=== PATIENT | male | born 1960 | race Caucasian/White ===

== ENCOUNTER 2024-06-30 10:10 | Inpatient (IN) | payer MEDICARE, OTHER ==
[~2024-06-30] VITALS: Ht 175.3 cm; Wt 59.2 kg
[2024-06-30] MEDS: IV NS 0.9% 500 ML BAG IV ONE (10:33)
[2024-06-30 11:21] LABS: BASOPHILS # (AUTO) 0.1 K/uL (0.0-0.2); BASOPHILS % (AUTO) 0.8 % (0.0-2.0); EOSINOPHILS # (AUTO) 0.2 K/uL (0.0-0.7); EOSINOPHILS % (AUTO) 2.3 % (0.0-6.0); HEMATOCRIT 37 % (39-51); HEMOGLOBIN 11.7 g/dL (13.5-17.5); LYMPHOCYTES # (AUTO) 1.9 K/uL (0.8-4.8); LYMPHOCYTES % (AUTO) 19.8 % (20.0-44.0); MEAN CORPUSCULAR HEMOGLOBIN 29 PG (26.0-33.0); MEAN CORPUSCULAR HGB CONC 32 g/dl (31.0-36.0); MEAN CORPUSCULAR VOLUME 91 fL (80-96); MONOCYTES # (AUTO) 0.7 K/uL (0.1-1.30); MONOCYTES % (AUTO) 7.4 % (2.0-12.0); NEUTROPHILS # (AUTO) 6.8 K/uL (1.8-8.9); NEUTROPHILS % (AUTO) 69.7 % (43.0-81.0); PLATELET COUNT (AUTO) 217 K/uL (150-450); RED BLOOD CELL COUNT(AUTO) 4.07 MIL/uL (4.5-6.0); RED CELL DISTRIBUTION WIDTH 17.3 % (11.5-15.0); WHITE BLOOD COUNT (AUTO) 9.8 K/uL (4.3-11.0)
[2024-06-30 11:31] LABS: ALANINE AMINOTRANSFERASE 21 U/L (12-78); ALBUMIN 2.7 g/dL (3.4-5.0); ALKALINE PHOSPHATASE 195 U/L (46-116); ASPARTATE AMINOTRANSFERASE 20 U/L (15-37); BILIRUBIN,DIRECT 0.1 mg/dL (0.0-0.2); BILIRUBIN,TOTAL 0.4 mg/dL (0.2-1.0); CALCIUM, SERUM 9.6 mg/dL (8.5-10.1); CARBON DIOXIDE 28 mmol/L (21-32); CHLORIDE 106 mmol/L (98-107); CREATININE 1.5 mg/dL (0.6-1.3); GLUCOSE 92 mg/dL (74-106); POTASSIUM 5.2 mmol/L (3.5-5.1); SODIUM SERUM 141 mmol/L (136-145); TOTAL PROTEIN, SERUM 8.7 g/dL (6.4-8.2); UREA NITROGEN, BLOOD 44 mg/dL (7-18)
[2024-06-30 11:33] LABS: LACTIC ACID 1.7 mmol/L (0.4-2.0)
[2024-06-30 11:36] LABS: LYMPHOCYTES % (MANUAL) 21 % (16-48); MONOCYTES % (MANUAL) 6 % (0-11.0); NEUTROPHILS % (MANUAL) 73 (42-76); PLATELET ESTIMATE ADEQUATE
[2024-06-30] MEDS ORDERED: CARV3.122 PO (12:30)
[2024-06-30] MEDS ORDERED: GABA300C PO (12:30)
[2024-06-30] MEDS ORDERED: AMIO200T5 PO (12:30)
[2024-06-30] MEDS ORDERED: LACT10SO3 PO (12:30)
[2024-06-30] MEDS ORDERED: SEVE800T28 PO (12:30)
[2024-06-30] MEDS ORDERED: ACET325T53 PO (12:30)
[2024-06-30] MEDS ORDERED: ISOS10TA2 PO (12:30)
[2024-06-30] MEDS ORDERED: BISA10SU11 RC (12:30)
[2024-06-30] MEDS ORDERED: CLON0.2T PO (12:30)
[2024-06-30] MEDS ORDERED: TRAM50TA PO (12:30)
[2024-06-30] MEDS ORDERED: CLOP75TA15 PO (12:30)
[2024-06-30] MEDS ORDERED: MELA3TAB41 PO (12:30)
[2024-06-30] MEDS ORDERED: SENN8.6T19 PO (12:30)
[2024-06-30] MEDS ORDERED: DOCU100C36 PO (12:30)
[2024-06-30] MEDS ORDERED: HYDR-3973 PO (12:30)
[2024-06-30] MEDS ORDERED: TAMS-12 PO (12:30)
[2024-06-30] MEDS ORDERED: LEVO100T9 PO (12:30)
[2024-06-30] MEDS ORDERED: MAGN400O6 PO (12:30)
[2024-06-30] MEDS ORDERED: ATOR40TA PO (12:30)
[2024-06-30] MEDS ORDERED: FAMO20TA8 PO (12:30)
[2024-06-30] MEDS ORDERED: FOLI0.8T2 PO (12:30)
[2024-06-30] MEDS ORDERED: ASPI-1420 PO (12:30)
[2024-06-30] MEDS ORDERED: INSU100I14 SQ (12:30)
[2024-06-30 12:48] LABS: INR 1.07 (0.91-1.10); PARTIAL THROMBOPLASTIN TIME 27.1 SEC (24.3-34.3); PROTHROMBIN TIME 11.3 SECS (9.2-11.1)
[2024-06-30] MEDS: ISOSORBIDE DINITRATE (10MG) 10 MG TABLET PO SCH (16:21)
[2024-06-30] MEDS: CARVEDILOL 3.125 MG TABLET PO SCH (16:21)
[2024-06-30] MEDS: GABAPENTIN 300 MG CAPSULE PO SCH (16:21)
[2024-06-30] MEDS: LACTULOSE 10 G/15 ML UDC (PYXIS) PO SCH (16:21)
[2024-06-30] MEDS: IV 1/2NS 1000 ML 1,000 ML IV PRN (16:22)
[2024-06-30] MEDS ORDERED: HYDROCODONE/APAP 5/325MG TABLET PO PRN (16:30)
[2024-06-30] MEDS ORDERED: BISACODYL SUPP (10 MG) 10 MG/SUPP.RECT SUPP.RECT RC PRN (16:30)
[2024-06-30] MEDS ORDERED: Z GUARD REMEDY 4 OZ OINT TP PRN (16:30)
[2024-06-30] MEDS ORDERED: MAGNESIUM HYDROXIDE 30 ML UDC PO PRN (16:30)
[2024-06-30] MEDS ORDERED: ACETAMINOPHEN 325 MG TABLET PO PRN (16:30)
[2024-06-30] MEDS ORDERED: ONDANSETRON HCL/PF 4 MG/2 ML VIAL IVP PRN (16:30)
[2024-06-30] MEDS ORDERED: MAG HYDROX/AL HYDROX/SIMETH 30 ML UDC PO PRN (16:30)
[2024-06-30] MEDS: SEVELAMER CARBONATE 800 MG TABLET PO SCH (18:00)
[2024-06-30 18:48] LABS: THYROID STIMULATING HORMONE 169.07 uIU/mL (0.358-3.74)
[2024-06-30 20:00] VITALS: BP 177/90; TEMP 98.4; O2SAT 95
[2024-06-30] MEDS: hydrALAZINE HCL IV 20 MG VIAL IV ONE (20:26)
[2024-06-30] MEDS: OLANZAPINE 10 MG VIAL IM ONE (20:55)
[2024-06-30 21:00] VITALS: BP 154/102; TEMP 98.4; O2SAT 95
[2024-06-30] MEDS: ATORVASTATIN 40 MG TABLET PO SCH (21:08)
[2024-06-30] MEDS: SENNOSIDES 8.6 MG TABLET PO SCH (21:08)
[2024-06-30] MEDS: TAMSULOSIN 0.4 MG CAP.SR.24H PO SCH (21:08)
[2024-06-30 21:15] VITALS: BP 131/99; O2SAT 96
[2024-06-30 22:00] VITALS: BP 152/91; O2SAT 98
[2024-07-01] VITALS: BP 151/89; TEMP 98.1; O2SAT 97
[2024-07-01 04:00] VITALS: BP 159/93; TEMP 98.2; O2SAT 97
[2024-07-01 06:20] LABS: BASOPHILS # (AUTO) 0.1 K/uL (0.0-0.2); BASOPHILS % (AUTO) 0.7 % (0.0-2.0); EOSINOPHILS # (AUTO) 0.2 K/uL (0.0-0.7); EOSINOPHILS % (AUTO) 2.9 % (0.0-6.0); HEMATOCRIT 35 % (39-51); HEMOGLOBIN 11.3 g/dL (13.5-17.5); LYMPHOCYTES # (AUTO) 1.4 K/uL (0.8-4.8); LYMPHOCYTES % (AUTO) 18.4 % (20.0-44.0); MEAN CORPUSCULAR HEMOGLOBIN 29 PG (26.0-33.0); MEAN CORPUSCULAR HGB CONC 32 g/dl (31.0-36.0); MEAN CORPUSCULAR VOLUME 90 fL (80-96); MONOCYTES # (AUTO) 0.8 K/uL (0.1-1.30); MONOCYTES % (AUTO) 11.3 % (2.0-12.0); NEUTROPHILS % (AUTO) 66.7 % (43.0-81.0); PLATELET COUNT (AUTO) 170 K/uL (150-450); RED CELL DISTRIBUTION WIDTH 16.6 % (11.5-15.0); WHITE BLOOD COUNT (AUTO) 7.5 K/uL (4.3-11.0)
[2024-07-01 06:22] LABS: APPEARANCE,URINE SLIGHTLY CLOUDY (CLEAR); BILIRUBIN,URINE NEGATIVE (NEGATIVE); BLOOD, URINE 3+ Ery/uL (NEGATIVE); COLOR,URINE YELLOW (YELLOW); KETONES,URINE TRACE mg/dL (NEGATIVE); LEUKOCYTE ESTERASE ,URINE NEGATIVE (NEGATIVE); NITRITE, URINE POSITIVE (NEGATIVE); PROTEIN,URINE 2+ mg/dl (NEGATIVE); UGLUCOSE NEGATIVE (NEGATIVE); UROBILINOGEN,URINE 0.2 EU/dL (0.2)
[2024-07-01 06:36] LABS: CALCIUM, SERUM 9.3 mg/dL (8.5-10.1); CREATININE 1.2 mg/dL (0.6-1.3); MAGNESIUM 1.8 mg/dL (1.8-2.4); PHOSPHORUS 2.9 mg/dL (2.5-4.9); POTASSIUM 3.9 mmol/L (3.5-5.1)
[2024-07-01 06:46] LABS: RBC,URINE 51-80 /HPF (0-2)
[2024-07-01 06:47] LABS: ADD URINE CULTURE YES; BACTERIA,URINE Moderate /HPF (None Seen); SQUAMOUS EPITHELIAL CELL,UR Few /HPF (None Seen); URINE AMORPHOUS URATE Few /HPF (None Seen)
[2024-07-01 08:00] VITALS: BP 167/106; TEMP 97.6; O2SAT 97
[2024-07-01] MEDS: ASPIRIN EC 81 MG TABLET.DR PO SCH (09:16)
[2024-07-01] MEDS: LEVOTHYROXINE SODIUM 100 MCG TABLET PO SCH (09:16)
[2024-07-01] MEDS: AMIODARONE HCL 200 MG TABLET PO SCH (09:17)
[2024-07-01] MEDS: CLOPIDOGREL BISULFATE 75 MG TABLET PO SCH (09:17)
[2024-07-01] MEDS: DOCUSATE SODIUM 100 MG CAPSULE PO SCH (09:17)
[2024-07-01] MEDS: PANTOPRAZOLE 40 MG TABLET.DR PO SCH (09:18)
[2024-07-01 10:19] LABS: BILIRUBIN,URINE NEGATIVE (NEGATIVE); BLOOD, URINE 3+ Ery/uL (NEGATIVE); COLOR,URINE YELLOW (YELLOW); KETONES,URINE NEGATIVE (NEGATIVE); LEUKOCYTE ESTERASE ,URINE 1+ (NEGATIVE); NITRITE, URINE NEGATIVE (NEGATIVE); PROTEIN,URINE 2+ mg/dl (NEGATIVE); UGLUCOSE NEGATIVE (NEGATIVE); UROBILINOGEN,URINE 0.2 EU/dL (0.2)
[2024-07-01 10:22] LABS: APPEARANCE,URINE CLOUDY (CLEAR)
[2024-07-01 10:26] LABS: BACTERIA,URINE Moderate /HPF (None Seen)
[2024-07-01 10:27] LABS: RBC,URINE 81-100 /HPF (0-2)
[2024-07-01 10:28] LABS: ADD URINE CULTURE YES; SQUAMOUS EPITHELIAL CELL,UR Few /HPF (None Seen); URINE AMORPHOUS URATE Moderate /HPF (None Seen); WBC,URINE 81-100 /HPF (0-3)
[2024-07-01 10:42] LABS: THYROID STIMULATING HORMONE 177.01 uIU/mL (0.358-3.74)
[2024-07-01 10:47] LABS: CREATININE, URINE 30.9 MG/DL (30.0-125.0)
[2024-07-01] MEDS ORDERED: IOHEXOL-350 100 ML VIAL IV ONE (11:11)
[2024-07-01] MEDS ORDERED: IV NS 0.9% 250 ML IV ONE (11:12)
[2024-07-01 11:30] LABS: EOSINOPHIL,URINE Rare
[2024-07-01 12:00] VITALS: BP 156/110; TEMP 97.9; O2SAT 96
[2024-07-01 16:00] VITALS: BP 166/79; TEMP 97.7; O2SAT 98
[2024-07-01 20:00] VITALS: BP_SYST 135; BP_SYST 139; BP_DIAS 81; BP_DIAS 90; TEMP 98.2; TEMP 98.6; O2SAT 94; O2SAT 97
[2024-07-02] VITALS (7 sets, daily range): BP systolic 89–154; BP diastolic 53–75; TEMP 97.5–98.6; O2SAT 95–98
[2024-07-02 08:06] LABS: FOLIC ACID > 20.0 ng/mL (>3.0)
[2024-07-02] MEDS ORDERED: LEVO125T8 PO (10:35)
[2024-07-02] MEDS ORDERED: CEPH-570 PO (10:35)
[2024-07-02] MEDS: CEFTRIAXONE 1 G in IV D5W 50 ML IV SCH (14:09)
[2024-07-02] MEDS: MUPIROCIN OINT 2% 22 GM TUBE NS SCH (21:46)
[2024-07-02] MEDS ORDERED: MUPIROCIN OINT 2% 22 GM TUBE ONE (23:01)
[2024-07-03] VITALS: BP 118/63; TEMP 98.3; O2SAT 97
[2024-07-03 04:00] VITALS: BP 148/70; TEMP 97.3; O2SAT 95
[2024-07-03 06:55] LABS: BASOPHILS % (AUTO) 0.5 % (0.0-2.0); EOSINOPHILS # (AUTO) 0.2 K/uL (0.0-0.7); EOSINOPHILS % (AUTO) 2.6 % (0.0-6.0); HEMATOCRIT 33 % (39-51); HEMOGLOBIN 10.8 g/dL (13.5-17.5); LYMPHOCYTES # (AUTO) 1.4 K/uL (0.8-4.8); LYMPHOCYTES % (AUTO) 19.8 % (20.0-44.0); MEAN CORPUSCULAR HEMOGLOBIN 30 PG (26.0-33.0); MEAN CORPUSCULAR HGB CONC 33 g/dl (31.0-36.0); MEAN CORPUSCULAR VOLUME 91 fL (80-96); MONOCYTES # (AUTO) 0.7 K/uL (0.1-1.30); MONOCYTES % (AUTO) 10.3 % (2.0-12.0); NEUTROPHILS # (AUTO) 4.8 K/uL (1.8-8.9); NEUTROPHILS % (AUTO) 66.8 % (43.0-81.0); PLATELET COUNT (AUTO) 146 K/uL (150-450); RED BLOOD CELL COUNT(AUTO) 3.66 MIL/uL (4.5-6.0); RED CELL DISTRIBUTION WIDTH 16.3 % (11.5-15.0); WHITE BLOOD COUNT (AUTO) 7.1 K/uL (4.3-11.0)
[2024-07-03 07:31] LABS: CREATININE 1.8 mg/dL (0.6-1.3)
[2024-07-03] MEDS: LEVOTHYROXINE SODIUM 125 MCG TABLET PO SCH (07:45)
[2024-07-03] MEDS: LIOTHYRONINE SODIUM (25 MCG) 25 MCG TABLET PO SCH (07:45)
[2024-07-03 08:00] VITALS: BP 150/75; TEMP 96.9; O2SAT 98
[2024-07-03 16:00] VITALS: BP 110/57; TEMP 97.1; O2SAT 97
[2024-07-06 16:46] LABS: METHYLMALONIC ACID 400 nmol/L (0-378)
[2024-07-07 06:06] LABS: VITAMIN B1 THIAMINE,WB 129.7 nmol/L (66.5-200.0)
== END 2024-07-03 16:54 | DRG 682 ==
LOC: ER 10:15 → TELE1 11:32 → MEDSG1 07-03 10:25
PROVIDERS: ATTEND Internal Medicine
PROC: 0W9B3ZZ Drainage of Left Pleural Cavity, Percutaneous Approach (ICD-10-PCS; principal; 2024-07-03)
DX: N17.0 Acute kidney failure with tubular necrosis (principal); G93.41 Metabolic encephalopathy; I13.0 Hypertensive heart and chronic kidney disease with heart failure and stage 1 through stage 4 chronic kidney disease, or unspecified chronic kidney disease; N39.0 Urinary tract infection, site not specified; E87.5 Hyperkalemia; I11.0 Hypertensive heart disease with heart failure; I50.9 Heart failure, unspecified; N18.9 Chronic kidney disease, unspecified; D64.9 Anemia, unspecified; E03.9 Hypothyroidism, unspecified; E11.40 Type 2 diabetes mellitus with diabetic neuropathy, unspecified; E11.51 Type 2 diabetes mellitus with diabetic peripheral angiopathy without gangrene; E78.5 Hyperlipidemia, unspecified; G47.00 Insomnia, unspecified; I48.91 Unspecified atrial fibrillation; K21.9 Gastro-esophageal reflux disease without esophagitis; N40.0 Benign prostatic hyperplasia without lower urinary tract symptoms; R09.02 Hypoxemia; R13.10 Dysphagia, unspecified; Z66 Do not resuscitate; Z79.4 Long term (current) use of insulin; Z89.511 Acquired absence of right leg below knee; Z89.512 Acquired absence of left leg below knee; B96.89 Other specified bacterial agents as the cause of diseases classified elsewhere
CPT/HCPCS: 36415; 70450-TC; 70496-TC; 70498-TC; 71045-TC; 71250-TC; 80048-TC; 80061-TC; 80076-TC; 81001; 82140-TC; 82570-TC; 82607-TC; 83605-TC; 83735-TC; 83921; 84100-TC; 84300-TC; 84425; 84439-TC; 84443-TC; 84484-TC; 85025-TC; 85730-TC; 87040-TC; 87081-TC; 87086-TC; 92526; 92611-TC; A4223; A6253; G0378; J0360; J0696; J3490; J7040; J7050; J7060; Q9967

== ENCOUNTER 2024-09-14 19:50 | Inpatient (IN) | payer MEDICARE, OTHER ==
[~2024-09-14] VITALS: Ht 175.3 cm; Wt 58.7 kg
[2024-09-14] MEDS: FUROSEMIDE 40 MG/4 ML VIAL IV ONE (03:00)
[~2024-09-14 19:50] MED LIST: ACET325T53 PO; AMIO200T5 PO; ASPI-1420 PO; ATOR40TA PO; BISA10SU11 RC; CARV3.122 PO; CEPH-570 PO; CLON0.2T PO; CLOP75TA15 PO; DOCU100C36 PO; FAMO20TA8 PO; FOLI0.8T2 PO; GABA300C PO; HYDR-3973 PO; INSU100I14 SQ; ISOS10TA2 PO; LACT10SO3 PO; LEVO125T8 PO; MAGN400O6 PO; MELA3TAB41 PO; SENN8.6T19 PO; SEVE800T28 PO; TAMS-12 PO; TRAM50TA PO
[2024-09-14] MEDS ORDERED: VANCOMYCIN 1 GM /D5W 250 ML PB IV ONE (20:28)
[2024-09-14] MEDS ORDERED: ACETAMINOPHEN ES 500 MG TABLET ONE (20:28)
[2024-09-14] MEDS ORDERED: CEFEPIME 1 GM VIAL ONE (20:28)
[2024-09-14] MEDS ORDERED: ACETAMINOPHEN ES 500 MG TABLET PO ONE (20:30)
[2024-09-14] MEDS: IV NS 0.9% 1,000 ML BAG IV ONE (20:37)
[2024-09-14] MEDS: CEFEPIME 1 GM in IV D5W 50 ML IV ONE (20:37)
[2024-09-14] MEDS: VANCOMYCIN 1 GM in IV D5W 250 ML IV ONE (20:53)
[2024-09-14 20:55] LABS: BASOPHILS % (AUTO) 0.6 % (0.0-2.0); EOSINOPHILS % (AUTO) 0.5 % (0.0-6.0); HEMATOCRIT 31 % (39-51); HEMOGLOBIN 10.1 g/dL (13.5-17.5); LYMPHOCYTES # (AUTO) 0.9 K/uL (0.8-4.8); LYMPHOCYTES % (AUTO) 10.8 % (20.0-44.0); MEAN CORPUSCULAR HEMOGLOBIN 29 PG (26.0-33.0); MEAN CORPUSCULAR HGB CONC 33 g/dl (31.0-36.0); MEAN CORPUSCULAR VOLUME 89 fL (80-96); MONOCYTES # (AUTO) 0.7 K/uL (0.1-1.30); MONOCYTES % (AUTO) 8.9 % (2.0-12.0); NEUTROPHILS # (AUTO) 6.2 K/uL (1.8-8.9); NEUTROPHILS % (AUTO) 79.2 % (43.0-81.0); PLATELET COUNT (AUTO) 135 K/uL (150-450); RED BLOOD CELL COUNT(AUTO) 3.49 MIL/uL (4.5-6.0); RED CELL DISTRIBUTION WIDTH 15.6 % (11.5-15.0); WHITE BLOOD COUNT (AUTO) 7.8 K/uL (4.3-11.0)
[2024-09-14] MEDS ORDERED: ACETAMINOPHEN 650 MG/SUPP.RECT RC ONE (21:13)
[2024-09-14 21:18] LABS: INR 1.19 (0.91-1.10); PARTIAL THROMBOPLASTIN TIME 25.7 SEC (24.3-34.3); PROTHROMBIN TIME 12.5 SECS (9.2-11.1)
[2024-09-14 21:29] LABS: CALCIUM, SERUM 8.8 mg/dL (8.5-10.1); CARBON DIOXIDE 25 mmol/L (21-32); CHLORIDE 104 mmol/L (98-107); GLUCOSE 130 mg/dL (74-106); POTASSIUM 5.4 mmol/L (3.5-5.1); SODIUM SERUM 136 mmol/L (136-145); UREA NITROGEN, BLOOD 48 mg/dL (7-18)
[2024-09-14] MEDS: ACETAMINOPHEN 650 MG/SUPP.RECT RC ONE (21:32)
[2024-09-14 21:35] LABS: LACTIC ACID 1.9 mmol/L (0.4-2.0)
[2024-09-14 21:37] LABS: ALANINE AMINOTRANSFERASE 31 U/L (12-78); ALBUMIN 2.3 g/dL (3.4-5.0); ALKALINE PHOSPHATASE 106 U/L (46-116); ASPARTATE AMINOTRANSFERASE 30 U/L (15-37); BILIRUBIN,DIRECT 0.1 mg/dL (0.0-0.2); BILIRUBIN,TOTAL 0.3 mg/dL (0.2-1.0); TOTAL PROTEIN, SERUM 8.1 g/dL (6.4-8.2)
[2024-09-14 21:41] LABS: APPEARANCE,URINE CLEAR (CLEAR); BILIRUBIN,URINE NEGATIVE (NEGATIVE); BLOOD, URINE 2+ Ery/uL (NEGATIVE); COLOR,URINE YELLOW (YELLOW); KETONES,URINE NEGATIVE (NEGATIVE); LEUKOCYTE ESTERASE ,URINE NEGATIVE (NEGATIVE); NITRITE, URINE NEGATIVE (NEGATIVE); PH,URINE 5.5 (5.0-8.0); PROTEIN,URINE 3+ mg/dl (NEGATIVE); UGLUCOSE NEGATIVE (NEGATIVE); UROBILINOGEN,URINE 0.2 EU/dL (0.2)
[2024-09-14 21:43] LABS: ADD URINE CULTURE NO; BACTERIA,URINE Few /HPF (None Seen); SQUAMOUS EPITHELIAL CELL,UR Rare /HPF (None Seen)
[2024-09-14] MEDS ORDERED: MAGNESIUM HYDROXIDE 30 ML UDC PO PRN (22:30)
[2024-09-14] MEDS ORDERED: ALBUTEROL FS 2.5 MG/3 ML VIAL.NEB NEB PRN (22:30)
[2024-09-14] MEDS ORDERED: ZOLPIDEM TARTRATE 5 MG TABLET PO PRN (22:30)
[2024-09-14] MEDS ORDERED: IPRATROPIUM NEB FS 0.5 MG/2.5 ML AMPUL.NEB NEB PRN (22:30)
[2024-09-14] MEDS ORDERED: MAG HYDROX/AL HYDROX/SIMETH 30 ML UDC PO PRN (22:30)
[2024-09-14] MEDS ORDERED: ONDANSETRON HCL/PF 4 MG/2 ML VIAL IVP PRN (22:30)
[2024-09-14] MEDS ORDERED: Z GUARD REMEDY 4 OZ OINT TP PRN (22:30)
[2024-09-14] MEDS ORDERED: ENOXAPARIN SODIUM 60 MG/0.6 ML DISP.SYRIN SQ ONE (23:30)
[2024-09-14] MEDS: ENOXAPARIN SODIUM 60 MG/0.6 ML DISP.SYRIN SQ SCH (23:31)
[2024-09-14] MEDS ORDERED: FUROSEMIDE 40 MG/4 ML VIAL ONE (23:51)
[2024-09-15 06:56] LABS: BASOPHILS % (AUTO) 0.3 % (0.0-2.0); HEMATOCRIT 30 % (39-51); LYMPHOCYTES # (AUTO) 0.8 K/uL (0.8-4.8); LYMPHOCYTES % (AUTO) 8.3 % (20.0-44.0); MEAN CORPUSCULAR HEMOGLOBIN 30 PG (26.0-33.0); MEAN CORPUSCULAR HGB CONC 33 g/dl (31.0-36.0); MEAN CORPUSCULAR VOLUME 89 fL (80-96); MONOCYTES # (AUTO) 0.5 K/uL (0.1-1.30); MONOCYTES % (AUTO) 5.2 % (2.0-12.0); NEUTROPHILS # (AUTO) 8.4 K/uL (1.8-8.9); NEUTROPHILS % (AUTO) 86.2 % (43.0-81.0); PLATELET COUNT (AUTO) 111 K/uL (150-450); RED BLOOD CELL COUNT(AUTO) 3.37 MIL/uL (4.5-6.0); RED CELL DISTRIBUTION WIDTH 15.7 % (11.5-15.0); WHITE BLOOD COUNT (AUTO) 9.7 K/uL (4.3-11.0)
[2024-09-15 07:20] LABS: CALCIUM, SERUM 8.7 mg/dL (8.5-10.1); CARBON DIOXIDE 21 mmol/L (21-32); CHLORIDE 106 mmol/L (98-107); CREATININE 2.1 mg/dL (0.6-1.3); GLUCOSE 136 mg/dL (74-106); MAGNESIUM 1.8 mg/dL (1.8-2.4); PHOSPHORUS 5.1 mg/dL (2.5-4.9); POTASSIUM 5.1 mmol/L (3.5-5.1); SODIUM SERUM 135 mmol/L (136-145); UREA NITROGEN, BLOOD 48 mg/dL (7-18)
[2024-09-15] MEDS ORDERED: NA P133E RC (08:30)
[2024-09-15] MEDS ORDERED: ZINC50TA69 PO (08:30)
[2024-09-15] MEDS ORDERED: LEVO150T8 PO (08:30)
[2024-09-15] MEDS ORDERED: AMIN30LI66 PO (08:30)
[2024-09-15 08:40] LABS: NT-PRO BNP > 25000 pg/mL (0-125)
[2024-09-15] MEDS ORDERED: FUROSEMIDE 20 MG/2 ML VIAL ONE (09:05)
[2024-09-15] MEDS ORDERED: PANTOPRAZOLE 40 MG VIAL ONE (09:06)
[2024-09-15] MEDS: FUROSEMIDE 20 MG/2 ML VIAL IV SCH (09:11)
[2024-09-15] MEDS: PANTOPRAZOLE 40 MG VIAL IV SCH (09:11)
[2024-09-15 11:30] VITALS: BP 118/48; TEMP 99.1; O2SAT 95
[2024-09-15] MEDS ORDERED: ACETAMINOPHEN 325 MG TABLET PO PRN (11:30)
[2024-09-15] MEDS ORDERED: INSULIN REGULAR, HUMAN 100 UNIT/ML 3 ML VIAL SQ PRN (11:30)
[2024-09-15] MEDS ORDERED: DEXTROSE 50%-WATER 50 ML DISP.SYRIN IV PRN (11:30)
[2024-09-15] MEDS ORDERED: CLONIDINE HCL 0.1 MG TABLET PO PRN (12:00)
[2024-09-15] MEDS: FUROSEMIDE 100 MG/10 ML VIAL IV SCH (12:23)
[2024-09-15] MEDS: GABAPENTIN 300 MG CAPSULE PO SCH (12:59)
[2024-09-15] MEDS: SEVELAMER CARBONATE 800 MG TABLET PO SCH (12:59)
[2024-09-15] MEDS: ISOSORBIDE DINITRATE (10MG) 10 MG TABLET PO SCH (12:59)
[2024-09-15] MEDS ORDERED: BLOOD SUGAR DIAGNOSTIC 1 EACH STRIP IN SCH (13:00)
[2024-09-15 16:00] VITALS: BP 105/59; TEMP 99.7; O2SAT 99
[2024-09-15] MEDS: BLOOD SUGAR DIAGNOSTIC 1 EACH STRIP IN SCH (16:59)
[2024-09-15] MEDS: CARVEDILOL 3.125 MG TABLET PO SCH (17:00)
[2024-09-15] MEDS: PROSTAT (PYXIS) 30 ML UDC PO SCH (17:29)
[2024-09-15] MEDS: CEFEPIME 2 GM in IV D5W 100 ML IV SCH (17:32)
[2024-09-15] MEDS: VANCOMYCIN 1 GM in IV D5W 250ml IV SCH (19:41)
[2024-09-15 20:00] VITALS: BP 99/57; TEMP 98.6; O2SAT 94
[2024-09-15] MEDS: TAMSULOSIN 0.4 MG CAP.SR.24H PO SCH (22:00)
[2024-09-15] MEDS: ATORVASTATIN 40 MG TABLET PO SCH (22:00)
[2024-09-15] MEDS: SENNOSIDES 8.6 MG TABLET PO SCH (22:00)
[2024-09-15] MEDS: INSULIN REGULAR, HUMAN 100 UNIT/ML 3 ML VIAL SQ PRN (22:16)
[2024-09-16] VITALS: BP 123/55; TEMP 98.2; O2SAT 93
[2024-09-16 04:00] VITALS: BP 110/66; TEMP 99.7; O2SAT 93
[2024-09-16 07:00] VITALS: BP 108/61; TEMP 98.2; TEMP 98.6; O2SAT 92
[2024-09-16] MEDS: LEVOTHYROXINE SODIUM 175 MCG TABLET PO SCH (08:01)
[2024-09-16 08:05] LABS: BASOPHILS % (AUTO) 0.4 % (0.0-2.0); EOSINOPHILS % (AUTO) 0.1 % (0.0-6.0); HEMATOCRIT 30 % (39-51); HEMOGLOBIN 9.6 g/dL (13.5-17.5); LYMPHOCYTES # (AUTO) 0.7 K/uL (0.8-4.8); LYMPHOCYTES % (AUTO) 9.5 % (20.0-44.0); MEAN CORPUSCULAR HEMOGLOBIN 29 PG (26.0-33.0); MEAN CORPUSCULAR HGB CONC 32 g/dl (31.0-36.0); MEAN CORPUSCULAR VOLUME 90 fL (80-96); MONOCYTES # (AUTO) 0.2 K/uL (0.1-1.30); MONOCYTES % (AUTO) 2.9 % (2.0-12.0); NEUTROPHILS % (AUTO) 87.1 % (43.0-81.0); PLATELET COUNT (AUTO) 102 K/uL (150-450); RED CELL DISTRIBUTION WIDTH 15.4 % (11.5-15.0); WHITE BLOOD COUNT (AUTO) 6.9 K/uL (4.3-11.0)
[2024-09-16 08:26] LABS: BILIRUBIN,TOTAL 0.3 mg/dL (0.2-1.0); CALCIUM, SERUM 8.7 mg/dL (8.5-10.1); CREATININE 2.4 mg/dL (0.6-1.3); PHOSPHORUS 5.1 mg/dL (2.5-4.9); POTASSIUM 4.6 mmol/L (3.5-5.1); TOTAL PROTEIN, SERUM 7.3 g/dL (6.4-8.2)
[2024-09-16] MEDS: VIT B CMPLX 3/FA/VIT C/BIOTIN 1 TAB TABLET PO SCH (08:58)
[2024-09-16] MEDS: ASPIRIN EC 81 MG TABLET.DR PO SCH (08:59)
[2024-09-16] MEDS: FAMOTIDINE (20 MG) 20 MG TABLET PO SCH (08:59)
[2024-09-16] MEDS: DOCUSATE SODIUM 100 MG CAPSULE PO SCH (08:59)
[2024-09-16] MEDS: AMIODARONE HCL 200 MG TABLET PO SCH (09:00)
[2024-09-16] MEDS: CLOPIDOGREL BISULFATE 75 MG TABLET PO SCH (09:00)
[2024-09-16] MEDS: PROSOURCE / PROSTAT (PYXIS) 30 ML UDC PO SCH (09:16)
[2024-09-16] MEDS: HEPARIN SODIUM, PORCINE 5000 UNITS/1 ML VIAL SQ SCH (11:25)
[2024-09-16 13:31] LABS: APPEARANCE,URINE CLEAR (CLEAR); BILIRUBIN,URINE NEGATIVE (NEGATIVE); BLOOD, URINE TRACE-INTA Ery/uL (NEGATIVE); COLOR,URINE YELLOW (YELLOW); KETONES,URINE NEGATIVE (NEGATIVE); LEUKOCYTE ESTERASE ,URINE NEGATIVE (NEGATIVE); NITRITE, URINE NEGATIVE (NEGATIVE); PH,URINE 5.5 (5.0-8.0); PROTEIN,URINE 2+ mg/dl (NEGATIVE); UGLUCOSE NEGATIVE (NEGATIVE); UROBILINOGEN,URINE 0.2 EU/dL (0.2)
[2024-09-16 13:39] LABS: ADD URINE CULTURE NO; BACTERIA,URINE Rare /HPF (None Seen); RBC,URINE 0-2 /HPF (0-2); SQUAMOUS EPITHELIAL CELL,UR Few /HPF (None Seen)
[2024-09-16 13:40] LABS: URINE AMORPHOUS URATE Moderate /HPF (None Seen)
[2024-09-16 13:56] LABS: CREATININE, URINE 105.5 MG/DL (30.0-125.0); URINE TOTAL PROTEIN 321.3 mg/dL (0-11.9)
[2024-09-16 14:05] LABS: EOSINOPHIL,URINE None Seen
[2024-09-16 16:00] VITALS: BP 94/60; TEMP 98.2; O2SAT 93
[2024-09-16 20:00] VITALS: BP 107/57; TEMP 98.2; O2SAT 96
[2024-09-17] VITALS: BP 108/65; TEMP 98.1; O2SAT 95
[2024-09-17 06:58] LABS: BASOPHILS % (AUTO) 0.2 % (0.0-2.0); EOSINOPHILS % (AUTO) 0.1 % (0.0-6.0); HEMATOCRIT 30 % (39-51); HEMOGLOBIN 9.7 g/dL (13.5-17.5); LYMPHOCYTES # (AUTO) 0.9 K/uL (0.8-4.8); LYMPHOCYTES % (AUTO) 16.3 % (20.0-44.0); MEAN CORPUSCULAR HEMOGLOBIN 29 PG (26.0-33.0); MEAN CORPUSCULAR HGB CONC 32 g/dl (31.0-36.0); MEAN CORPUSCULAR VOLUME 90 fL (80-96); MONOCYTES # (AUTO) 0.2 K/uL (0.1-1.30); MONOCYTES % (AUTO) 4.2 % (2.0-12.0); NEUTROPHILS # (AUTO) 4.4 K/uL (1.8-8.9); NEUTROPHILS % (AUTO) 79.2 % (43.0-81.0); PLATELET COUNT (AUTO) 84 K/uL (150-450); RED BLOOD CELL COUNT(AUTO) 3.36 MIL/uL (4.5-6.0); RED CELL DISTRIBUTION WIDTH 15.8 % (11.5-15.0); WHITE BLOOD COUNT (AUTO) 5.5 K/uL (4.3-11.0)
[2024-09-17 07:06] LABS: PTH, INTACT 43 pg/mL (15-65)
[2024-09-17 07:45] LABS: CALCIUM, SERUM 8.3 mg/dL (8.5-10.1); CREATININE 2.3 mg/dL (0.6-1.3); MAGNESIUM 2.1 mg/dL (1.8-2.4); PHOSPHORUS 4.5 mg/dL (2.5-4.9); POTASSIUM 4.9 mmol/L (3.5-5.1)
[2024-09-17 08:00] VITALS: BP 100/87; TEMP 100.8; O2SAT 94
[2024-09-17] MEDS: ACETAMINOPHEN 325 MG TABLET PO PRN (08:27)
[2024-09-17] MEDS: PANTOPRAZOLE 40 MG TABLET.DR PO SCH (09:13)
[2024-09-17 09:26] VITALS: TEMP 100
[2024-09-17 10:35] LABS: LYMPHOCYTES % (MANUAL) 10 % (16-48); MONOCYTES % (MANUAL) 3 % (0-11.0); PLATELET ESTIMATE DECREASED
[2024-09-17 10:36] LABS: BAND % (MANUAL) 4 % (0.0-5.0); NEUTROPHILS % (MANUAL) 83 (42-76)
[2024-09-17 13:00] VITALS: BP 122/74
[2024-09-18 10:10] LABS: *SPE A/G RATIO 0.5 (0.7-1.7); *SPE ALBUMIN 2.3 g/dL (2.9-4.4); *SPE ALPHA-1-GLOBULIN 0.3 g/dL (0.0-0.4); *SPE ALPHA-2-GLOBULIN 1.1 g/dL (0.4-1.0); *SPE BETA GLOBULIN 0.9 g/dL (0.7-1.3); *SPE GLOBULIN, TOTAL 4.3 g/dL (2.2-3.9); *SPE M-SPIKE Not Observed g/dL (Not Observed); *SPE PROTEIN TOTAL 6.6 g/dL (6.0-8.5); *SPEGAMMA GLOBULIN 1.9 g/dL (0.4-1.8)
== END 2024-09-17 14:50 | DRG 193 ==
LOC: ER 19:51 → TRANSITION 09-15 00:18 → TELE 09-15 09:50
PROVIDERS: ADMIT Nurse Practitioner Family; ATTEND Student in an Organized Health Care Education/Training Program
DX: J15.9 Unspecified bacterial pneumonia (principal); G93.41 Metabolic encephalopathy; I21.A1 Myocardial infarction type 2; J96.01 Acute respiratory failure with hypoxia; N17.0 Acute kidney failure with tubular necrosis; I50.43 Acute on chronic combined systolic (congestive) and diastolic (congestive) heart failure; E44.0 Moderate protein-calorie malnutrition; I13.0 Hypertensive heart and chronic kidney disease with heart failure and stage 1 through stage 4 chronic kidney disease, or unspecified chronic kidney disease; J90 Pleural effusion, not elsewhere classified; Z89.512 Acquired absence of left leg below knee; Z89.511 Acquired absence of right leg below knee; Z66 Do not resuscitate; D63.8 Anemia in other chronic diseases classified elsewhere; E03.9 Hypothyroidism, unspecified; E78.5 Hyperlipidemia, unspecified; E88.09 Other disorders of plasma-protein metabolism, not elsewhere classified; N18.9 Chronic kidney disease, unspecified; N40.0 Benign prostatic hyperplasia without lower urinary tract symptoms; Z91.011 Allergy to milk products; Z79.02 Long term (current) use of antithrombotics/antiplatelets; Z79.82 Long term (current) use of aspirin; Z79.899 Other long term (current) drug therapy; Z79.4 Long term (current) use of insulin; Y95 Nosocomial condition; Z87.891 Personal history of nicotine dependence; I48.0 Paroxysmal atrial fibrillation; E87.5 Hyperkalemia; E11.51 Type 2 diabetes mellitus with diabetic peripheral angiopathy without gangrene; E11.22 Type 2 diabetes mellitus with diabetic chronic kidney disease; Z79.890 Hormone replacement therapy
CPT/HCPCS: 36415; 71045-TC; 76770-TC; 80048-TC; 80053-TC; 80076-TC; 81001; 82040-TC; 82550-TC; 82570-TC; 82962-TC; 83605-TC; 83735-TC; 83880; 83970; 84100-TC; 84155; 84165; 84300-TC; 84443-TC; 84484-TC; 85025-TC; 85730-TC; 87040-TC; 87081-TC; 87086-TC; 93307-TC; A4223; G0378; J0692; J1644; J1650; J1815; J1940; J2470; J3370; J7030; J7050; J7060